=== PATIENT | male | born 2000 | race Caucasian/White ===

== ENCOUNTER 2021-10-23 19:38 | Emergency (ER) | payer OTHER, SELFPAY ==
[2021-10-23 19:51] VITALS: BP 126/87; PULSE 79; RESP 16; TEMP 36.7; O2SAT 98; BMI 21.5
[2021-10-23 19:58] VITALS: PULSE 84
--- NOTE | 2021-10-23 20:40 | ED.WOUNDLAC ---
HPI - Wound/Laceration General Chief Complaint: Laceration/Wound Stated Complaint: Lac on right pointer finger Time Seen by Provider: 10/23/21 20:15 History of Present Illness HPI narrative: This 21-year-old comes in with an injury to his right index finger. This occurred at work as he cut his finger on some sheet metal. He was seen in urgent care and 1 stitch was placed and instructions were made to go to [facility] for further evaluation as there appeared to be tendon or joint capsule injury. The patient did go there and waited almost 4 hours in the emergency department without any sign that he would get care there has ambulance is kept coming in. He then presented here. Related Data Home Medications Medication Instructions Recorded Confirmed No Known Home Medications 10/23/21 10/23/21 Allergies Allergy/AdvReac Type Severity Reaction Status Date / Time amoxicillin Allergy Intermediate Rash Verified 10/23/21 19:54 Review of Systems Status of ROS: Reports: 10 or more systems reviewed and unremarkable except as noted in History and below Narrative: Constitutional: No fevers, no weight gain or loss. Eyes: No discharge. No vision changes. HENT: No congestion, no sore throat, no ear pain. Cardiovascular: No chest pain, no palpitations. Respiratory: No shortness of breath, no wheezes, no cough. Gastrointestinal: No abdominal pain, no vomiting, no diarrhea. Genitourinary: No dysuria, no hematuria. Musculoskeletal: Right index finger as described above. Skin: No rashes, no pruritis. Neurological: No dizziness, weakness, sensory change, speech change. Endo/Heme/Allergies: No bruising or bleeding. No polydipsia. Pysch: no suicidality, no anxiety, no insomnia. All other systems reviewed and are negative. [facility] Medical History (Updated 10/23/21 @ 20:54 by Elmer Dixon MD) No significant past medical history Surgical History (Updated 10/23/21 @ 19:55 by Tres Albarran RN) No significant past surgical history Social History Smoking Status: Current some day smoker What tobacco products do you use: cigarettes Do you use any of these nicotine containing products: None Second hand tobacco smoke exposure: No How often do you have a drink containing alcohol: never How often do you have six or more drinks on one occasion: Never AUDIT-C Alcohol total score: 0 Non-prescribed substance use: denies use Exam Narrative: Exam Narrative: Constitutional: Well-developed, well-nourished, no acute distress. HEENT: Normocephalic, atraumatic. Neck: Normal range of motion. Nontender. Supple. Heart: Intact distal pulses. Lungs: No chest discomfort. No wheezes, rhonchi, or rales. Abdomen: Nontender. Back: Normal range of motion. Extremities: Right index finger has a laceration over the PIP joint. Extensor function appears normal as it covered and is both joints of the right index finger. Sensation is intact. Skin: Intact. No rash. Warm. No erythema or pallor. Neurologic: No altered sensation. No weakness. Alert and oriented. Psychiatric: No suicidality. No anxiety or depression. No insomnia. Nursing notes and vitals signs are reviewed. Const: Vital Signs, click to edit/add: Vital Signs - 24 hr 10/23/21 19:51 10/23/21 19:58 Temperature 98.0 F Pulse Rate [Right Pulse Oximeter] 79 84 Respiratory Rate 16 Blood Pressure [Ri ght Upper Arm] 126/87 Pulse Oximetry 98 Course Vital Signs Vital signs: Initial Vital Signs Temperature 98.0 F 10/23/21 19:51 Temperature Source Temporal Artery Scan 10/23/21 19:51 Pulse Rate 79 10/23/21 19:51 Respiratory Rate 16 10/23/21 19:51 Blood Pressure 126/87 10/23/21 19:51 Blood Pressure Mean 100 10/23/21 19:51 Blood Pressure Position Sitting 10/23/21 19:51 Pulse Oximetry 98 10/23/21 19:51 Oxygen Delivery Method 10/23/21 19:51 Vital Signs Temperature 98.0 F 10/23/21 19:51 Pulse Rate 79 10/23/21 19:51 Respiratory Rate 16 10/23/21 19:51 Blood Pressure 126/87 10/23/21 19:51 Pulse Oximetry 98 10/23/21 19:51 Temperature 98.0 F 10/23/21 19:51 Pulse Rate 84 10/23/21 19:58 Respiratory Rate 16 10/23/21 19:51 Blood Pressure 126/87 10/23/21 19:51 Pulse Oximetry 98 10/23/21 19:51 MDM - Wound/Laceration MDM Narrative Medical decision making narrative: This patient comes in with an injury to his right index finger. IA removed the suture holding the wound in position and after anesthesia with 1% lidocaine with epinephrine I explored the wound to its base. There does appear to be in injury directly into the joint capsule of the PIP joint. A while the wound was held open I had the patient flex and extend his finger. He states that it was painful but I did not see sign of tendon disruption. There is evidence of disruption of the joint capsule and possibly a tendon injury partially. I placed 4 sutures in interrupted fashion using 4.0 Prolene suture. I spoke with the orthopedic surgeon on-call, Dr. Ng [id number], who will be glad to see him in clinic for further evaluation and treatment. The patient was placed in a finger splint and he received a tetanus vaccination. Discharge Plan Discharge Clinical Impression: Laceration Patient Disposition: Home, Self-Care Condition: Stable Additional Instructions: Keep wound covered and splint in place. Follow-up with orthopedic clinic as scheduled. Prescriptions: No Action No Known Home Medications 0RF Stand Alone Forms: [employer] Info Instructions
[2021-10-23 20:59] VITALS: BP 145/78; PULSE 89; RESP 16; TEMP 36.7
[2021-10-23] MEDS: TETANUS/DIPHTH/PERTUSSIS 0.5 ML SYRINGE IM (21:02)
[2021-10-23 21:08] VITALS: BP 124/78; PULSE 74; RESP 16; TEMP 36.7; O2SAT 98
== END 2021-10-23 21:02 | disposition home or self-care (01) ==
LOC: ED 20:59
PROVIDERS: Emergency Provider Emergency Medicine Emergency Medical Services
DX: S61.210A Laceration without foreign body of right index finger without damage to nail, initial encounter (principal); W26.9XXA Contact with unspecified sharp object(s), initial encounter
CPT/HCPCS: 12001; 90471; 90715; 99283